=== PATIENT | female | born 1955 | race Caucasian/White ===

== ENCOUNTER → 2018-04-30 | Outpatient (CLI) | payer OTHER ==
[2014-10-14 13:05] VITALS: BMI 27.5
[~2018-04-30] MED LIST: AZE137NAPT NS; BEN20 PO; BENA1TAB49 PO; BENA1TAB59 PO; BUDRES INH; BUDRES25 IH; CEFU250 PO; CET10 PO; CICPT NS; CYCL-277 PO; DOX100 PO; DUONEB INH; GUALA600 PO; LANS15CA38 PO; LANS30CA70 PO; LANS30SU PO; ONDA4TAB PO; PIR14R INH; POTA20TA85 PO; PRE1 PO; PRE10 PO; PRE20 PO; PRE5 PO; SUC1 PO; XOPENEX INH; [UNRECOGNIZED DRUG - CODE] IH; [UNRECOGNIZED DRUG - CODE] IH
--- NOTE | 2018-05-01 08:24 | RADIOLOGY IMAGING REPORT ---
FACILITY: [facility] [place] PATIENT NAME: SYED NARAYANAN : [id number] MR: [id number] V: [id number] EXAM DATE: [id number] ORDERING PHYSICIAN: DELVIN WEST TECHNOLOGIST: Avis Johnson PROCEDURE:BILATERAL DIGITAL SCREENING MAMMOGRAM WITH CAD ASSISTED INTERPRETATION & 3D TOMOSYNTHESIS COMPARISON:Prior mammograms 04/18/17, 02/24/16, 01/26/15, 01/14/14, 11/26/12, 11/22/11. INDICATIONS:screening FINDINGS: A small amount of fibroglandular tissue is seen throughout the breasts. The parenchymal pattern has remained stable allowing for difference in mammographic technique & patient positioning. There is no evidence of malignant appearing mass, malignant appearing calcifications or other secondary sign of malignancy in either breast. DIAGNOSTIC CATEGORY 1--NEGATIVE. RECOMMENDATIONS: ROUTINE MAMMOGRAM AND CLINICAL EVALUATION. IMPRESSION: BIRADS 1: Negative. No significant abnormality is seen. Dictated by: Ilsa Hoskins M.D. on 04/30/2018 at 16:33 Transcribed by: HENRY on 05/01/2018 at 7:51 Approved by: Ilsa Hoskins M.D. on 05/01/2018 at 8:23 [facility]
== END ==
LOC: MAMO 00:34
PROVIDERS: ATTEND Family Medicine
DX: Z12.31 Encounter for screening mammogram for malignant neoplasm of breast (principal)
CPT/HCPCS: 77063; 77067